=== PATIENT | male | born 1945 | race Two or more races ===

== ENCOUNTER → 2017-06-21 | Outpatient (REF) | payer MEDICARE | LOC: M SMT 13:02 | PROVIDERS: ATTEND Nurse Practitioner Women's Health | DX: N32.89 Other specified disorders of bladder (principal); R33.9 Retention of urine, unspecified | CPT/HCPCS: 51798; 81001; 87086; 88108; G0463 ==

== ENCOUNTER → 2017-08-30 | Outpatient (REF) | payer MEDICARE | LOC: M LAB REF 13:06 | PROVIDERS: ATTEND Internal Medicine Nephrology | DX: E11.22 Type 2 diabetes mellitus with diabetic chronic kidney disease (principal) ==

== ENCOUNTER → 2021-11-23 | Outpatient (REF) | payer MEDICARE | LOC: M LAB REF 12:58 | PROVIDERS: ATTEND Internal Medicine Nephrology | DX: E83.42 Hypomagnesemia (principal) ==